=== PATIENT | female | born 1985 | race Caucasian/White ===

== ENCOUNTER 2025-07-19 22:41 | Outpatient (CLI) | payer OTHER, SELFPAY ==
[2025-07-19] VITALS (13 sets, daily range): BP systolic 121; BP diastolic 58; PULSE 75–89; O2SAT 94–98
[2025-07-20] VITALS (11 sets, daily range): PULSE 70–92; O2SAT 93–98
--- NOTE | 2025-07-20 00:15 | CRLHL7_ITS ---
For Patients: As a result of the Century Cures Act, medical imaging exams and procedure reports are released immediately into your electronic medical record. You may view this report before your referring provider. If you have questions, please contact your health care provider. INDICATION: Possible abruption, bleeding after intercourse. COMPARISON: None available. TECHNIQUE: Ultrasound OB pelvis transabdominal. Real time andres scale imaging of the fetus was performed without non-stress testing. FINDINGS: Sonographic imaging demonstrates a single living intrauterine gestation. The fetus has a regular cardiac rate of 142 beats per minute. The fetus has a cephalic orientation. The placenta lies posterior/left wall without evidence of placenta previa or abruption on the provided views. The cervix measures 4.2 cm in length and appears closed via transabdominal imaging. Single deepest pocket measures 9.8 cm. Amniotic fluid index measures 22.1 cm. breathing movements: 2/2 Gross body movements: 2/2 tone: 2/2 Amniotic fluid volume: 2/2 Total: 88 IMPRESSION: 1. Normal biophysical profile score 8 out of 8. 2. Posterior placenta without evidence of previa or abruption. The cervix appears closed. 3. ROMARIO is approaching upper limits of normal with deepest pocket measuring greater than 8 cm. Dictated by Sade Sullivan MD @ 07/20/2025 1:50:19 AM (Electronically Signed)
[2025-07-20 01:31] LABS: Trichomonas No Trichomonas Seen (None Seen)
--- NOTE | 2025-07-20 02:09 | PC.OBNST ---
NST Note NST Note Start: 07/19/25 22:43 Freq: ONCE Status: Active Protocol: Document 07/20/25 02:06 FELIXKELLYLANI (Rec: 07/20/25 02:09 TEE Goldman) NST Note 2 Para (# of births) 0 EDC 09/02/25 Gestational Age In 33 Weeks & 5 Days Weeks & Days High Risk Factors High Blood Pressure - Preexisting,Diabetes - Preexisting Type II Insulin,Advanced Maternal Age Patient Presented Vaginal bleeding with Complaint(s) of Other Complaints Pt reported bright red bleeding during intercourse. BPP 8/8, wetprep negative. Rhogam given, Kleihauer Betke sent out. Per Dr. Rudolph, if BPP 8/8 no need for further FHR monitoring. Reactive Yes Appropriate for Yes Gestational Age RN Glen Caballero RN Date 07/19/25 Reactive Yes Appropriate for Yes Gestational Age RN Dr. Ronni ZAVALA Date 07/19/25 OB NST charge Yes Complete NST Note Yes via Write Note The provider's electronic signature indicates the NST is reactive/appropriate for gestational age. *Note to provider: If an addendum is required, open the patient's chart and click on the note under the Nurse/Allied Health tab.
== END 2025-07-20 03:33 | disposition home or self-care (01) ==
LOC: OB OUT 22:41 → OB 22:42
PROVIDERS: PCP Family Medicine; Visit Provider Family Medicine
DX: O46.93 Antepartum hemorrhage, unspecified, third trimester (principal); O09.523 Supervision of elderly multigravida, third trimester; Z3A.33 33 weeks gestation of pregnancy
CPT/HCPCS: 36415; 59025; 76819; 85460; 85461; 87210; G0463; J2791

== ENCOUNTER 2025-07-21 09:14 | Outpatient (CLI) | payer OTHER, SELFPAY ==
[2025-07-21] VITALS (9 sets, daily range): BP systolic 132; BP diastolic 72; PULSE 76–88; O2SAT 97–98
[2025-07-21 10:19] LABS: Appearance Urine Clear (Clear)
--- NOTE | 2025-07-21 10:47 | PC.OBNST ---
NST Note NST Note Start: 07/21/25 10:12 Freq: ONCE Status: Active Protocol: Document 07/21/25 10:12 [facility] (Rec: 07/21/25 10:47 [facility] No Response) NST Note 2 Para (# of births) 0 EDC 09/02/25 Gestational Age In 33 Weeks & 6 Days Weeks & Days High Risk Factors High Blood Pressure - Preexisting,Diabetes - Preexisting Type II Diet Controlled,Advanced Maternal Age Patient Presented Contractions/cramping with Complaint(s) of Reactive Yes Appropriate for Yes Gestational Age RN Case RN Date 07/21/25 Reactive Yes Appropriate for Yes Gestational Age RN Radha RN Date 07/21/25 OB NST charge Yes Complete NST Note Yes via Write Note The provider's electronic signature indicates the NST is reactive/appropriate for gestational age. *Note to provider: If an addendum is required, open the patient's chart and click on the note under the Nurse/Allied Health tab.
== END 2025-07-21 10:50 | disposition home or self-care (01) ==
LOC: OB OUT 09:14 → OB 09:15
PROVIDERS: PCP Family Medicine; Visit Provider Family Medicine
DX: O24.419 Gestational diabetes mellitus in pregnancy, unspecified control (principal); O09.523 Supervision of elderly multigravida, third trimester; O26.893 Other specified pregnancy related conditions, third trimester; R03.0 Elevated blood-pressure reading, without diagnosis of hypertension; Z3A.33 33 weeks gestation of pregnancy
CPT/HCPCS: 59025; 81003; G0463

== ENCOUNTER 2025-08-04 16:35 | Outpatient (CLI) | payer OTHER, SELFPAY ==
[2025-08-04] VITALS (8 sets, daily range): BP systolic 133–138; BP diastolic 60–63; PULSE 81–166; RESP 20–22; TEMP 36.8–37.1; O2SAT 79–98
--- NOTE | 2025-08-04 16:57 | CRLHL7_ITS ---
For Patients: As a result of the Cures Act, medical imaging exams and procedure reports are released immediately into your electronic medical record. You may view this report before your referring provider. If you have questions, please contact your health care provider. INDICATION: Non-reassuring NST. COMPARISON: OB ultrasound 07/20/2025. TECHNIQUE: Ultrasound OB pelvis transabdominal. Real time grayscale imaging of the fetus was performed without non-stress testing. FINDINGS: Sonographic imaging demonstrates a single living intrauterine gestation. The fetus has a regular cardiac rate of 130 beats per minute. The fetus has a cephalic orientation. The placenta lies anteriorly. Single deepest pocket measures 10.8 cm. Amniotic fluid index measures 23.5 cm. breathing movements: 0/2 Gross body movements: 2/2 tone: 2/2 Amniotic fluid volume: 2/2 Total: 6/8 IMPRESSION: 1. Biophysical profile score 6 out of 8. breathing was visualized but not for a continuous 30 seconds or more. 2. Borderline polyhydramnios with ROMARIO measuring 23.5 cm and deepest pocket greater than 8 cm. Dictated by Sade Sullivan MD @ 08/04/2025 7:50:02 PM (Electronically Signed)
[2025-08-04] MEDS: LACTATED RINGERS 1000 ML 1,000 ML IV (17:15)
--- NOTE | 2025-08-04 20:21 | PC.OBNST ---
NST Note NST Note Start: 08/04/25 16:57 Freq: ONCE Status: Active Protocol: Document 08/04/25 16:57 [facility] (Rec: 08/04/25 20:21 [facility] [id number]) NST Note 2 Para (# of births) 0 EDC 09/02/25 Gestational Age In 35 Weeks & 6 Days Weeks & Days High Risk Factors Diabetes - Preexisting Type II Insulin,Advanced Maternal Age Patient Presented Other with Complaint(s) of Other Complaints unreactive NST at [facility] [place] [facility] appt. Would like to have continued monitoring and a BPP to ensure the well being of baby. Reactive Yes Appropriate for Yes Gestational Age SAMIR Goldsmith MD Date 08/04/25 Reactive Yes Appropriate for Yes Gestational Age SAMIR Ramos RN Date 08/04/25 OB NST charge Yes Complete NST Note Yes via Write Note The provider's electronic signature indicates the NST is reactive/appropriate for gestational age. *Note to provider: If an addendum is required, open the patient's chart and click on the note under the Nurse/Allied Health tab.
== END 2025-08-04 20:10 | disposition home or self-care (01) ==
LOC: OB OUT 16:36 → OB 16:44
PROVIDERS: PCP Family Medicine; Visit Provider Family Medicine
DX: O24.113 Pre-existing type 2 diabetes mellitus, in pregnancy, third trimester (principal); O09.523 Supervision of elderly multigravida, third trimester; Z3A.35 35 weeks gestation of pregnancy
CPT/HCPCS: 59025; 76819; G0463; J7120

== ENCOUNTER 2025-08-14 08:35 | Outpatient (CLI) | payer OTHER, SELFPAY ==
[2025-08-15 13:34] LABS: Strep B DNA Probe POSITIVE (Negative)
[2025-08-15 13:41] LABS: Strep B Susceptibility Needed? No
== END 2025-08-14 08:36 | disposition home or self-care (01) ==
PROVIDERS: PCP Family Medicine; Visit Provider Family Medicine
DX: O09.523 Supervision of elderly multigravida, third trimester (principal); Z3A.37 37 weeks gestation of pregnancy
CPT/HCPCS: 87081; 87653

== ENCOUNTER 2025-08-18 16:19 | Inpatient (IN) | payer OTHER, SELFPAY ==
[2025-08-18 17:00] VITALS: BP 132/65; PULSE 82
--- NOTE | 2025-08-18 19:10 | P.OBHP_ITS ---
OB - H&P: HPI Labor/Induction History of Present Illness Time Seen by Provider: 19:10 Date Seen: 08/18/25 Chief Complaint: The patient is a 40 year old 2 para 0 at 37.6 weeks gestation by LMP, who presents for induction of labor for obesity, chronic hypertension, type 2 diabetes on insulin. Chief complaint: maternity : 2 Para: 0 Narrative: Eveline Jiang is a 40 year old female Labs Blood type: A (-) negative Rubella: nonimmune RPR/VDLR: nonreactive GBS status: positive HBsAG: negative Review of Systems Status of ROS: Reports: 10 or more systems reviewed and unremarkable except as noted in History and below Meds Home Medications and Allergies Home Medications ?Medication ?Instructions ?Recorded ?Confirmed ?Type aspirin 81 mg tablet,delayed 81 mg PO DAILY 07/19/25 0 08/18/25 History release hydroxyzine pamoate 25 mg capsule 25 mg PO Q8H PRN 08/18/25 History insulin glargine 100 unit/mL (3 80 unit subcut HS 07/0208/18/25 History mL) subcutaneous pen (Lantus Solostar U-100 Insulin) insulin lispro 100 unit/mL 1 sliding scale dose subcut 07/19/25 08/18/25 History subcutaneous pen TIDWMEAL labetalol 100 mg tablet 100 mg PO BID 07/19/2508/18 History ondansetron 4 mg disintegrating 4 mg PO Q8H PRN nausea /vomiting 07/19/25 08/18/25 History tablet vitamins with calcium 1 tab PO DAILY 07/19/25 08/18/25 History no.72-iron 27 mg-folic acid 1 mg tablet (WesTab Plus) sertraline 100 mg tablet 150 mg PO DAILY 07/19/25 History Allergies Allergy/AdvReac Type Severity Reaction Status Date / Time cefdinir Allergy Intermediate Rash Verified 08/18/25 16:52 metformin AdvReac Severe Gastrointestinal Verified 08/18/25 16:52 Upset tramadol AdvReac Dizziness Verified 08/18/25 16:52 OB - H&P: Exam Physical Exam: Vital signs: Pulse BP 82 132/65 08/18/25 17:00 08/18/25 17:00 Constitutional: Constitutional: no acute distress Routine HEENT Exam: Head: Present atraumatic and normal inspection Routine Neck Exam: Neck: Present full ROM Routine Respiratory Exam: Respiratory: Present CTA bilaterally Routine Cardiovascular Exam: Cardiovascular: RRR, S1 and S2 Routine Abdominal Exam: Abdominal: Present normal bowel sounds Comments: Gravid, nontender Routine Exam: Perineum Description: Normal Detailed Labor and Delivery Exam: Patient Gravid: yes Dilation (cm): 1 Effacement (%): 20 Cervix position: posterior Consistency: medium Cervical ripeness score: 1 Tachysystole: No Contraction intensity: Mild Comments: sporadic contractions Fetus (Single): Station: -3 Amniotic Membrane Status: intact Heart Rate Baseline: 130 Monitor Accelerations: Present Monitor Decelerations: None Adjunct Instructor Of Women'S Studies Variability: Moderate (6-25) Routine Extremities Exam: Extremities: Present full ROM; Absent calf tenderness Routine Back/Spine/Pelvis Exam: Back/Spine: full ROM Routine Skin Exam: Present intact Routine Neurological Exam: Present alert and oriented X3 Routine Psychiatric Exam: Present normal affect and normal thought process OB - Problem Based A/P Additional Plan (1) Advanced maternal age (AMA) in : Problem details: Patient is 40 years old. Status: Acute (2) Positive GBS test: Problem details: Group B strep test positive Status: Acute Plan: - plan on starting Abx at 5am. (3) Abnormal test: Problem details: Jess high risk due to DNA fraction beling low-- thought due to obesity. Triploidy trisomy 18, trisomy 13 high risk. No stigmata of aneuploidy on level 2 ultrasound. Declined amniocentesis. Status: Acute (4) Rh negative status during : Problem details: received rhogam at 28 weeks. Also received on 07/20 during bleeding episode. Status: Acute (5) Chronic hypertension affecting : Problem details: has been well controlled with 100 mg labetalol BID Status: Acute (6) Type 2 diabetes mellitus affecting , antepartum: Problem details: Has been well controlled. Is on lantus 80 units at bedtime, Humalog 15 units per 40 grams of carbohydrates. Status: Acute Plan: - 50% lantus tonight (40 units) - continue meal time insulin as above - Has CGM on (7) Obesity affecting in third trimester: Problem details: Pre BMI 49. Status: Acute (8) Polyhydramnios affecting : Problem details: Intermittent polyhydramnios. SDP yesterday was 7.4 cm Status: Acute (9) macrosomia: Problem details: Most recent growth scan showed EFW 3286 g, >98% (growth scan was 07/27) Status: Acute (10) Anxiety: Problem details: on sertraline and hydroxyzine prn Status: Acute Plan: - continue Sertraline. Hydroxyzine prn Plan - cook catheter placed with 60 and 60 cc in vaginal and uterine balloons. Plan on low dose pitocin at 11pm. - morphine and vistaril prn - Given complex patient, Dr. Limon to consult tomorrow - anesthesia consulted outpatient - labs upon IV placement Delivery/Labor/Induction Plan Plan: induction Induction method: Intracervical balloon catheter
[2025-08-18 21:03] LABS: Hematocrit* 30.7 % (33.0-51.0); Hemoglobin* 10.8 gm/dL (12.0-16.0); Immature Granulocytes Abs Auto 0.03 K/uL (0.00-0.30); Immature Granulocytes Pct Auto 0.3 %; Mean Corpuscular HGB Conc 35 gm/dL (32-36); Mean Corpuscular Hemoglobin 29 pg (26-34); Mean Corpuscular Volume 83 fL (80-100); RDW Coefficient of Variation % 12.5 % (11.5-15.5); Red Blood Count* 3.68 m/uL (4.00-5.20); White Blood Count* 10.08 K/uL (4.50-11.00)
[2025-08-18 21:04] LABS: Lymphocytes Absolute Auto 1.90 K/uL (0.90-2.90)
[2025-08-18 21:05] LABS: Slide Review Reflex No
[2025-08-18] MEDS: LABETALOL HCL 100 MG TABLET PO (21:06)
[2025-08-18 21:10] VITALS: BP 145/75; PULSE 79
[2025-08-18] MEDS: ACETAMINOPHEN 500 MG TABLET 1000 MG PO (21:48)
[2025-08-19] VITALS (102 sets, daily range): BP systolic 71–177; BP diastolic 34–99; PULSE 61–160; RESP 16–17; TEMP 36.4–36.5; O2SAT 93–100; BMI 58.1
[2025-08-19] MEDS: ONDANSETRON 2 MG/ML inj 4 MG IV (00:15)
[2025-08-19] MEDS: LACTATED RINGERS 1000 ML 1,000 ML 75 ML IV ×3 (02:12→18:39)
[2025-08-19] MEDS: OXYTOCIN 30 unit/500 ML in NS 30 UNIT/500 ML BAG IVPB (02:12)
--- NOTE | 2025-08-19 07:44 | P.OBPN_ITS ---
Subjective Time Seen by Provider: 07:44 Date Seen: 08/19/25 Narrative: Patient had a lot of pain with cook catheter, felt better after morphine and vistaril. Patient feels well this morning. Did get some rest overnight. Objective Exam: Resting comfortably in recliner. No acute distress. Vital Signs: Last Vital Signs Pulse 70 08/19/25 05:09 BP 123/59 L 08/19/25 05:09 Contractions Monitor mode: External Contraction Frequency: 4-5 min Contraction pattern: Irregular Contraction intensity: Mild Pitocin Rate (mU/min): 5 Assessment Assessment: active labor Station: -3 Tracing Comments: monitoring is very disconnected at this point. Generally in 140s Labor Progress: Cook catheter out, titrating pitocin. Plan Plan: - continue to titrate pitocin - close monitoring of bp and blood glucose - PLATFORM ENGINEER consult today - Plan on AROM at noon (discussed internal monitors will likely be needed) - continue to work on monitoring baby. - Anticipate , though high risk for failed induction given risk factors.
[2025-08-19] MEDS: SERTRALINE 50 MG TABLET 150 MG PO (08:14)
[2025-08-19] MEDS: LABETALOL HCL 100 MG TABLET PO (08:14)
[2025-08-19] MEDS: CEFAZOLIN 2 GM in 0.9 % SODIUM CHLORIDE Mini-bag 100 ML IVPB (08:48)
--- NOTE | 2025-08-19 09:43 | PM.OBCN1 ---
OB - CN: HPI Date of Consult Time Seen by Provider: 09:15 Date Seen: 08/19/25 Patient: Terese Patient Consult date: 08/19/25 Requesting Physician: Deanna Wright MD Primary Care Provider: Deanna Wright MD Consult Narrative Reason for consult: other (BMI, at high risk for section.) Narrative: The patient is a 40 year old G 2 P 0 at 38 0/7 weeks gestation that was admitted to the Center on 08/18/25 for IOL due to CHTN, DM type 2 on insulin, suspected macrosomia, mild polyhydramnios. Patient has been comanaged by Dr. Wright FM and MPP. Recommendation was given for delivery at 38 weeks. I was consulted this am to review section risk with patient. Printed records reviewed this am by me prior to meeting patient. IOL ongoing, started last night with placement of cook catheter, IV Oxytocin overnight. Patient had a positive type and screen, Dr. Wright did notify me this morning that patient received Rhogam about 4 weeks ago due to an episode of vaginal bleeding after intercourse. Patient was evaluated in out unit and findings were reassuring and not consistent with abruption, PPROM or labor. History of Present Dating criteria: based on LMP care: good care Ultrasounds: normal 1st trimester US and normal mid trimester US complications: chronic hypertension and other History History 2 Elective abortions Para 0 Spontaneous abortions Hx # Term Pregnancies Ectopic pregnancies Hx # Pregnancies Multiple births Number of Living Children 0 Labs Blood type: A (-) negative Rubella: nonimmune RPR/VDLR: nonreactive GBS status: positive HBsAG: negative OB Labs: Lab Assessment Start: 08/18/25 16:48 Freq: ONCE Status: Complete Protocol: PC.OBGBS Activity Type Activity Date Activity User E-sign Co-sign Detail Recorded Client Recorded Date Recorded By Document 08/19/25 08:32 [facility] [id number] 08/19/25 08:32 [facility] 08/19/25 08:32 Lab Assessment GBS Status positive Is Patient Allergic to Penicillin? No Treatment Required [facility] Medical History (Updated 08/18/25 @ 19:35 by Deanna Wright MD) Asthma ?J45.909 - Unspecified asthma, uncomplicated (ICD-10) Anxiety ?F41.9 - Anxiety disorder, unspecified (ICD-10) Chronic hypertension affecting ?O10.919 - Unspecified pre-existing hypertension complicating , unspecified trimester (ICD-10) Type 2 diabetes mellitus affecting , antepartum ?O24.119 - Pre-existing type 2 diabetes mellitus, in , unspecified trimester (ICD-10) Surgical History S/P tonsillectomy and adenoidectomy ?Z90.89 - Acquired absence of other organs (ICD-10) History of esophagogastroduodenoscopy (EGD) ?Z98.890 - Other specified postprocedural states (ICD-10) Social History What is your current living situation?: I presently have a place to live Problems where you live: no known problems In the past 12 months, utilities in danger of being shut off: no In past 12 months, lack of transportation kept you from medical appts, meetings, work, or getting things needed for daily living: no In the past 12 mos, have been you worried that your food would run out before you had money to buy more?: never true In the past 12 mos, the food you bought just didn't last and you didn't have money to buy more?: never true Smoking Status: Never smoker How often does anyone, including family, friends and others, physically hurt you: never How often does anyone, including family, friends and others, insult or talk down to you: never How often does anyone, including family, friends and others, threaten you with harm: never How often does anyone, including family, friends and others, scream or curse at you: never Meds Home Medications and Allergies Home Medications ?Medication ?Instructions ?Recorded ?Confirmed ?Type aspirin 81 mg tablet,delayed 81 mg PO DAILY 07/19/25 08/18/25 History release hydroxyzine pamoate 25 mg capsule 25 mg PO Q8H PRN 07/19/25 08/18/25 History insulin glargine 100 unit/mL (3 80 unit subcut HS 07/19/25 08/18/25 History mL) subcutaneous pen (Lantus Solostar U-100 Insulin) insulin lispro 100 unit/mL 1 sliding scale dose subcut 07/19/25 08/18/25 History subcutaneous pen TIDWMEAL labetalol 100 mg tablet 100 mg PO BID 07/19/25 08/18/25 History ondansetron 4 mg disintegrating 4 mg PO Q8H PRN nausea/vomiting 07/19/25 08/18/25 History tablet vitamins with calcium 1 tab PO DAILY 07/19/25 08/18/25 History no.72-iron 27 mg-folic acid 1 mg tablet (WesTab Plus) sertraline 100 mg tablet 150 mg PO DAILY 07/19/25 08/18/25 History Allergies Allergy/AdvReac Type Severity Reaction Status Date / Time cefdinir Allergy Intermediate Rash Verified 08/18/25 16:52 metformin AdvReac Severe Gastrointestinal Verified 08/18/25 16:52 Upset tramadol AdvReac Dizziness Verified 08/18/25 16:52 OB - H&P: Exam Physical Exam: Vital signs: Temp Pulse Resp BP 97.7 F 66 17 146/87 H 08/19/25 07:53 08/19/25 08:21 08/19/25 07:53 08/19/25 08:21 OB - Results Labs Labs: Short CBC 08/18/25 Range/Units 20:54 WBC 10.08 (4.50-11.00) K/uL Hgb 10.8 L (12.0-16.0) gm/dL Hct 30.7 L (33.0-51.0) % Plt Count 267 (140-440) K/uL OB - CN: A/P Assessment and Plan (1) Advanced maternal age (AMA) in : Problem details: Patient is 40 years old. Status: Acute (2) Positive GBS test: Problem details: Group B strep test positive Status: Acute (3) Abnormal test: Problem details: Jess high risk due to DNA fraction beling low-- thought due to obesity. Triploidy trisomy 18, trisomy 13 high risk. No stigmata of aneuploidy on level 2 ultrasound. Declined amniocentesis. Status: Acute (4) Rh negative status during : Problem details: received rhogam at 28 weeks. Also received on 07/20 during bleeding episode. Status: Acute (5) Chronic hypertension affecting : Problem details: has been well controlled with 100 mg labetalol BID Status: Acute (6) Type 2 diabetes mellitus affecting , antepartum: Problem details: Has been well controlled. Is on lantus 80 units at bedtime, Humalog 15 units per 40 grams of carbohydrates. Status: Acute (7) Obesity affecting in third trimester: Problem details: Pre BMI 49. Status: Acute Assessment and Plan: Met Eveline this morning, very pleasant. We reviewed reason for my consult today. Reviewed higher risk for section due to BMI, suspected macrosomia. Discussed that at this point we would not know until we try and that the goal is always to work for a vaginal delivery. I did review certain specific recommendations to include not waiting too long for re consult if labor progress seems to be protracted, mostly if station remains high. Reviewed recommendation against an assisted vaginal delivery due to high risk of shoulder dystocia. I asked patient if wanted to discuss specifics about delivery such as how procedure is performed details about discussion of risks, but patient does not want to jump into that quite yet if not needed. We did review how recovery looks different from a vaginal delivery, we also briefly reviewed family centered delivery and answered questions that patient had at this time. In the case of a delivery I will need assistance due to body habitus. FU as needed. (8) Polyhydramnios affecting : Problem details: Intermittent polyhydramnios. SDP yesterday was 7.4 cm Status: Acute (9) macrosomia: Problem details: Most recent growth scan showed EFW 3286 g, >98% (growth scan was 07/27) Status: Acute (10) Anxiety: Problem details: on sertraline and hydroxyzine prn Status: Acute
[2025-08-19] MEDS: LIDOCAINE 2% (PF) 5 ML VIAL EPIDURAL (12:59)
[2025-08-19] MEDS: ePHEDrine sulfate 5 MG/ML inj 10 MG IVP (13:08)
[2025-08-19] MEDS: PHENYLEPHRINE 100 MCG/ML SYRINGE IVP ×2 (13:14→13:18)
--- NOTE | 2025-08-19 13:18 | PM.OBPNL ---
Subjective Time Seen by Provider: 13:19 Date Seen: 08/19/25 Narrative: Requests epidural, feels well. Objective Exam: resting comfortably Vital Signs: Last Vital Signs Temp 97.7 F 08/19/25 07:53 Pulse 71 08/19/25 13:17 Resp 17 08/19/25 07:53 BP 82/45 L 08/19/25 13:17 Pulse Ox 99 08/19/25 13:14 Pelvic Exam Dilation (cm): 3 Effacement (%): 50 Station: -3 Contractions Monitor mode: Internal Contraction Frequency: 3 Contraction pattern: Regular Contraction intensity: Strong/Firm Pitocin Rate (mU/min): 19 Assessment Assessment: induction ongoing Station: -3 Amniotic Membrane Status: AROM (copious amount of clear fluid) Status: Category l Heart Rate Baseline: 125 Mcfp Variability: Moderate (6-25) Monitor Accelerations: Present Monitor Decelerations: None Labor Progress: AROM now with internals placed following epidural placement. Doing well. Plan Plan: - monitor BP closely, has been low following epidural. Meds dosed per protocol. - continue to monitor blood sugar closely - AROM now of clear fluid, titrate pitocin as needed to adequate MVUs - difficulty monitoring baby, scalp placed. - OB business continuity consultant updated
[2025-08-19] MEDS: ROPIVACAINE 0.2% 100 ml 100 ML 12 MG EPIDURAL (13:30)
--- NOTE | 2025-08-19 13:37 | PM.ANBPRC ---
[facility] Medical History (Updated 08/18/25 @ 19:35 by Deanna Wright MD) Asthma ?J45.909 - Unspecified asthma, uncomplicated (ICD-10) Anxiety ?F41.9 - Anxiety disorder, unspecified (ICD-10) Chronic hypertension affecting ?O10.919 - Unspecified pre-existing hypertension complicating , unspecified trimester (ICD-10) Type 2 diabetes mellitus affecting , antepartum ?O24.119 - Pre-existing type 2 diabetes mellitus, in , unspecified trimester (ICD-10) Surgical History S/P tonsillectomy and adenoidectomy ?Z90.89 - Acquired absence of other organs (ICD-10) History of esophagogastroduodenoscopy (EGD) ?Z98.890 - Other specified postprocedural states (ICD-10) Social History What is your current living situation?: I presently have a place to live Problems where you live: no known problems In the past 12 months, utilities in danger of being shut off: no In past 12 months, lack of transportation kept you from medical appts, meetings, work, or getting things needed for daily living: no In the past 12 mos, have been you worried that your food would run out before you had money to buy more?: never true In the past 12 mos, the food you bought just didn't last and you didn't have money to buy more?: never true Smoking Status: Never smoker How often does anyone, including family, friends and others, physically hurt you: never How often does anyone, including family, friends and others, insult or talk down to you: never How often does anyone, including family, friends and others, threaten you with harm: never How often does anyone, including family, friends and others, scream or curse at you: never Meds Home Medications and Allergies Home Medications ?Medication ?Instructions ?Recorded ?Confirmed ?Type aspirin 81 mg tablet,delayed 81 mg PO DAILY 07/19/25 08/18/25 History release hydroxyzine pamoate 25 mg capsule 25 mg PO Q8H PRN 07/19/25 08/18/25 History insulin glargine 100 unit/mL (3 80 unit subcut HS 07/19/25 08/18/25 History mL) subcutaneous pen (Lantus Solostar U-100 Insulin) insulin lispro 100 unit/mL 1 sliding scale dose subcut 07/19/25 08/18/25 History subcutaneous pen TIDWMEAL labetalol 100 mg tablet 100 mg PO BID 07/19/25 08/18/25 History ondansetron 4 mg disintegrating 4 mg PO Q8H PRN nausea/vomiting 07/19/25 08/18/25 History tablet vitamins with calcium 1 tab PO DAILY 07/19/25 08/18/25 History no.72-iron 27 mg-folic acid 1 mg tablet (WesTab Plus) sertraline 100 mg tablet 150 mg PO DAILY 07/19/25 08/18/25 History Allergies Allergy/AdvReac Type Severity Reaction Status Date / Time cefdinir Allergy Intermediate Rash Verified 08/18/25 16:52 metformin AdvReac Severe Gastrointestinal Verified 08/18/25 16:52 Upset tramadol AdvReac Dizziness Verified 08/18/25 16:52 Results Labs Labs: Laboratory Results - last 24 hr 08/18/25 20:54 WBC 10.08 RBC 3.68 L Hgb 10.8 L Hct 30.7 L MCV 83 MCH 29 MCHC 35 RDW Coeff of Adalgisa 12.5 Plt Count 267 Neut % (Auto) 69.1 Lymph % (Auto) 18.7 L [place] % (Auto) 9.4 Eos % (Auto) 2.2 Baso % (Auto) 0.3 Neut # (Auto) 6.97 Lymph # (Auto) 1.90 [place] # (Auto) 0.90 Eos # (Auto) 0.22 Baso # (Auto) 0.03 Abs Immat Gran (auto) 0.03 Imm/Tot Granulo (auto) 0.3 Blood Type A Negative Antibody Screen POSITIVE Antibody Identification Anti-D Crossmatch (AHG) See Detail Vital Signs Vital Signs: Last Vital Signs Temp 97.7 F 08/19/25 07:53 Pulse 68 08/19/25 13:36 Resp 17 08/19/25 07:53 BP 125/59 L 08/19/25 13:36 Pulse Ox 95 08/19/25 13:24 Weight: 139.43 kg Height: 154.94 cm Anesthesia Procedures Epidural Insertion Patient Location: OB Start Time: 12:00 Stop Time: 13:00 Start Date: 08/19/25 Stop Date: 08/19/25 Reason for Block: procedure for pain Patient Position: sitting Performed By: Iam Yo Preanesthetic Checklist: IV checked, risks and benefits discussed, timeout performed and anesthesia consent Prep: chlorhexidine gluconate Monitoring: blood pressure monitoring and continuous pulse oximetry Approach: midline Vertebral Space: lumbar (1-5) Epidural Technique: TRENT saline Needle Type: Tuohy needle Injection Technique: continuous catheter Needle gauge: 17 Needle Length (cm): 10 cm Needle Insertion Depth (cm): 9 Catheter Gauge: 19 Catheter Type: multi-orifice Catheter at skin depth (cm): 16 Test Dose Result: negative and lidocaine 1.5% with epinephrine 1 to 200,000
[2025-08-19] MEDS: CEFAZOLIN 1 GM in 0.9 % SODIUM CHLORIDE Mini-bag 100 ML IVPB ×2 (13:41→17:24)
[2025-08-19] MEDS: ACETAMINOPHEN 500 MG TABLET 1000 MG PO (20:00)
[2025-08-19] MEDS: AZITHROMYCIN 500 MG in 0.9 % SODIUM CHLORIDE 250 ml 250 ML 255 MG IVPB (20:51)
--- NOTE | 2025-08-19 20:52 | PM.OBPNL ---
Subjective Time Seen by Provider: 20:00 Date Seen: 08/19/25 Narrative: Patient is feeling well. She feel epidural has been going well. Objective Exam: resting comfortably in bed. Vital Signs: Last Vital Signs Temp 97.6 F 08/19/25 20:00 Pulse 78 08/19/25 20:49 Resp 17 08/19/25 17:33 BP 140/76 H 08/19/25 20:49 Pulse Ox 97 08/19/25 15:21 Pelvic Exam Dilation (cm): 4.5 Effacement (%): 50 Station: -3 Contractions Monitor mode: Internal Contraction Frequency: 3-4 Contraction pattern: Regular Contraction intensity: Strong/Firm Pitocin Rate (mU/min): 25 Assessment Assessment: induction ongoing Station: -3 Amniotic Membrane Status: AROM (copious amount of clear fluid) Status: Category l Heart Rate Baseline: 125 Retirement Variability: Moderate (6-25) Monitor Accelerations: Present Monitor Decelerations: None Labor Progress: Patient has progressed from 3-4.5 cm with adequate MVUs over 8 hours. However, station has not changed. head still quite high. Plan Plan: - discussed with Dr. Marek Humphreys, who assessed and feels that as station has not improved, should proceed with primary section. Patient is in agreement with plan. - I will attend for pediatric care of baby - will discontinue pitocin at this time. - heart tracing reassuring.
--- NOTE | 2025-08-19 23:18 | PM.OBPRCCS ---
OB Delivery Proc Additional Procedures Tubal Ligation at the time of : No Other: No Procedure Date of procedure: 08/19/25 Pre-op diagnosis: IUP at 38 0/7 weeks, Chronic hypertension, GDMA2, suspected macrosomia, arrest in dilation, failed IOL. Post-op diagnosis: same Procedure Done: only Will [facility] bill your pro fee for this procedure?: Yes Blood Loss Measurement Type: QBL (997) Bakri Used: No IV fluids (mL): 1,000 Urine Output (mL): 50 Urine Output Comment: Clear at end of surgery Surgeon: Wade Childers MD Chest Painting And Sealing Supervisor: Deja Bagley MD Anesthesia Type: Epidural Findings: FINDINGS: Live-born male , vertex LOP presentation, Apgars 8 and 9 at 1 and 5 minutes respectively. weight 3380g. Grossly normal bilateral fallopian tubes and ovaries. Procedure Name: Primary Low Transverse Section Procedure Description: PROCEDURE: After obtaining informed consent, the patient was taken to the operating room where epidural anesthesia was found to be adequate. A pannus retractor was placed. She was prepared and draped in the normal sterile fashion in the dorsal supine position with a leftward tilt. A Pfannenstiel skin incision was made with a scalpel about 2 cm above symphysis pubic bone, 14-16 cm in length. This incision was carried down to the underlying layer of fascia with the Bovie and scalpel. Multiple large bleeding superficial vessels encountered and grasped with Elisa, coagulated and cut. The fascia was incised in the midline and the incision extended laterally. The superior and inferior aspects of the fascial incision were grasped with Wilbert clamps, elevated and the underlying rectus muscles dissected off sharply and with electrocautery. The rectus muscles were then in the midline. The Hollis O retractor was then placed into the incision. The lower uterine segment was then incised in a transverse fashion with the scalpel. Upon entry into the uterus, clear amniotic fluid was noted. The uterine incision was extended cephalo caudally with blunt finger fractionation. The 's head was delivered atraumatically, 2 nuchal cords reduced easily and this allowed delivery of the rest of the infant's body. The cord was doubly clamped and cut, and the was handed off the field to warm for evaluation. The placenta was delivered spontaneously with umbilical cord traction and fundal massage. The uterus was cleared of all clots and debris. The uterine incision was reapproximated in a running locking fashion with a 0 Vicryl suture. A 2nd layer of the same suture was used to imbricate in horizontal fashion. At this time a small hematoma was noted in the lower uterine segment towards the left this did not look to be expanding and measured about 3-4cm in largest dimension. To better visualize it the uterus was exteriorized. Large and dilated left uterine vessels noted and bleeding noted from this site, decision was made to place an [place] stitch. Vicryl 0 utilized and a figure of 8 stitch was completed. Immediate hemostasis noted. Hematoma again inspected and no concern for expansion again noted. The gutters were inspected and cleared of blood clot. Sammy placed over hysterotomy to further secure hemostasis. All instruments and retractors were removed. Subfascial muscles thoroughly inspected and hemostasis secured. Fascia approximated with 0 PDS. The subcutaneous tissues were copiously irrigated, inspected and hemostasis secured. The subcutaneous fat was reapproximated with running sutures of 3-0 Vicryl in 4 layers. The skin was closed in a subcuticular fashion with 4-0 Monocryl. LiquiBand applied and silver dressing will remain in place for 7 days. The patient tolerated the procedure well. Sponge, lap, needle, and instrument counts were reported as correct x2. The patient was taken to the recovery room, awake, and in stable condition. She did receive 3 grams of IV Ancef and 500mg of Azithromycin preoperatively. 1g of TXA was also given at start of surgery due to concerns for multiple small bleeding vessels upon initiation of surgery. Complications: Patient did have an anxiety attack during surgery and was moving quite a lot, patient denied pain, she was concerned that she was unable to feel her legs. Anesthesia provided IV medication and she was eventually able to rest and we were able to complete surgery w/o the need for intubation. Pathology: specimen obtained, sent to pathology Surgery Debrief Performed: Yes Condition: stable Disposition: floor
[2025-08-20] VITALS (34 sets, daily range): BP systolic 102–129; BP diastolic 66–84; PULSE 64–90; RESP 16–20; TEMP 36.4–36.8; O2SAT 96–100
--- NOTE | 2025-08-20 00:01 | P.ANES_ITS ---
Anesthesia Charges Start Date/Time Anesthesia Start Date: 08/20/25 Anesthesia Start Time: 21:38 Stop Date/Time Anesthesia Stop Date: 08/20/25 Anesthesia Stop Time: 23:53 Summary Emergency: SPECIAL EVENTS PLANNER Coding CPT Codes CPT Codes: ANES/ANALG CS DELIVER ADD-ON - 95987 ([id number]) P3 - PATIENT W/SEVERE SYS DISEASE, QZ - SPECIAL EVENTS PLANNER SVC W/O SHIPPING AND RECEIVING COORDINATOR BY Additional Codes: Summary - Emergency: SPECIAL EVENTS PLANNER ([id number])
--- NOTE | 2025-08-20 00:01 | W.ANESCHARGE ---
Anesthesia Charges Start Date/Time Anesthesia Start Date: 08/20/25 Anesthesia Start Time: 21:38 Stop Date/Time Anesthesia Stop Date: 08/20/25 Anesthesia Stop Time: 23:53 Summary Emergency: PHARMACEUTICAL LABORATORY TECHNICIAN Coding CPT Codes CPT Codes: ANES/ANALG CS DELIVER ADD-ON - 27422 ([id number]) P3 - PATIENT W/SEVERE SYS DISEASE, QZ - PHARMACEUTICAL LABORATORY TECHNICIAN SVC W/O FINANCIAL SERVICES COUNSELOR BY Additional Codes: Summary - Emergency: PHARMACEUTICAL LABORATORY TECHNICIAN ([id number])
--- NOTE | 2025-08-20 00:04 | W.PM.NB ---
Nerve Block Nerve Block Time Seen by Provider: 23:41 Date Seen: 08/20/25 Type of block requested by surgeon for post-operative analgesia: TAP Side: bilateral Time out performed: Yes Verification of patient name: Yes Verification of date of : Yes Name of person performing procedure: Cele Yo Continuous monitoring Was continuous monitoring of O2 sat, B/P, surveillance monitor, recorded every 15 minutes?: Yes Procedure Checklist: sterile prep, needles and gloves Ultrasound guided. Images saved: Yes Medications given in 5ml increments after negative aspiration: Marcaine %: 0.25 mL: 40 Needle gauge: 20 and Exparel mL: 10 Needle gauge: 20 Patient tolerated procedure well: Yes Block Charges Block Charge (with Pro Fee): TAP Bilateral Use of Ultrasound Machine for Block: Yes- US Guidance/pain block
[2025-08-20 06:21] LABS: Hemoglobin* 10.0 gm/dL (12.0-16.0)
[2025-08-20] MEDS: LABETALOL HCL 100 MG TABLET PO ×2 (10:01→21:08)
[2025-08-20] MEDS: SERTRALINE 50 MG TABLET 150 MG PO (10:01)
[2025-08-20] MEDS: DOCUSATE SODIUM 100 MG CAPSULE PO (10:01)
[2025-08-20] MEDS: ENOXAPARIN 40 MG/0.4 ML INJ SUBCUT ×2 (11:31→23:17)
[2025-08-20] MEDS: ACETAMINOPHEN 500 MG TABLET 1000 MG PO (20:29)
[2025-08-21 04:02] VITALS: BP 132/81; PULSE 83; RESP 16; TEMP 36.4; O2SAT 98
[2025-08-21] MEDS: ACETAMINOPHEN 500 MG TABLET 1000 MG PO ×2 (07:34→13:36)
[2025-08-21 07:47] VITALS: BP 128/83; PULSE 91; RESP 16; TEMP 36.7; O2SAT 98
--- NOTE | 2025-08-21 08:20 | PM.OBDSVD1 ---
DS: Providers Provider Time Seen by Provider: 08: Date Seen: 08/21/25 Date of admission: 08/18/25 16:19 Primary care physician: Deanna Wright MD Admitting Clinician: Deanna Wright MD Consults: 08/18/25 19:19 Consult to Physician [CONS] Routine Comment: Consulting Provider: Nori Childers Has provider been notified: Yes Attending Physician on discharge: Deanna Wright MD Date of Discharge: 08/21/25 DS: Diagnosis Discharge Diagnosis (1) S/P primary low transverse : Status: Acute (2) Anxiety: Status: Acute Problem details: on sertraline and hydroxyzine prn (3) Rh negative status during : Status: Acute Problem details: received rhogam at 28 weeks. Also received on 07/20 during bleeding episode. (4) Chronic hypertension affecting : Status: Acute Problem details: has been well controlled with 100 mg labetalol BID (5) Type 2 diabetes mellitus affecting , antepartum: Status: Acute Problem details: Endocrinology recommendations: Lantus 25 units daily, stop Humalog. Maintain pre-prandial glucose between 80-130, post-prandial between 80-180. Lantus decreased to 12 units daily at discharge due to hypoglycemia on 25 units Exam Narrative: Exam Narrative: Physical exam: General: No acute distress Psych: Alert and oriented x4, full affect HEENT: Normocephalic, atraumatic Heart: Regular rate and rhythm, no murmur rub or gallop Lungs: Clear to auscultation bilaterally Abdomen: Normoactive bowel sounds, soft, no tenderness, rebound, or guarding Incision(s): Silver dress seal was already disrupted. Dressing removed. Appropriately tender to palpation. Clean, dry, and intact. No erythema, induration, or abnormal discharge/breakdown Skin: No lesions or rashes Lower extremities: 1+ bilateral lower extremity edema Pelvic exam: Scant bleeding on pad Const: Vital Signs, click to edit/add: Vital Signs - 24 hr 08/20/25 08:54 08/20/25 09:54 08/20/25 10:54 Temperature Pulse Rate [Pulse Oximeter] Respiratory Rate 18 16 16 Blood Pressure [Ri ght Arm] Pulse Oximetry Oxygen Delivery Ri thod 08/20/25 11:54 08/20/25 15:47 08/20/25 16:00 Temperature 98.3 F 98.0 F Pulse Rate [Pulse Oximeter] 75 87 Respiratory Rate 16 18 18 Blood Pressure [Ri ght Arm] 106/70 102/66 Pulse Oximetry 98 97 Oxygen Delivery Me thod Room Air Room Air 08/20/25 16:54 08/20/25 19:45 08/20/25 19:45 Temperature 98.2 F Pulse Rate [Pulse Oximeter] 83 Respiratory Rate 20 16 16 Blood Pressure [Ri ght Arm] 122/75 Pulse Oximetry 97 Oxygen Delivery Me thod Room Air 08/20/25 21:05 08/20/25 23:37 08/21/25 04:02 Temperature 98.0 F 97.5 F L Pulse Rate [Pulse Oximeter] 82 90 83 Respiratory Rate 16 16 Blood Pressure [Ri ght Arm] 125/76 120/78 132/81 Pulse Oximetry 96 98 Oxygen Delivery Me thod Room Air Room Air 08/21/25 07:47 Temperature 98.1 F Pulse Rate [Pulse Oximeter] 91 Respiratory Rate 16 Blood Pressure [Ri ght Arm] 128/83 Pulse Oximetry 98 Oxygen Delivery Me thod Room Air OB - DS: Summary Hospital Course Hospital Course: The patient is a 40 year old G2, now P1 who was admitted at 37.6 weeks gestation that was admitted to the Center on 08/18/25 for medical induction of labor. She had a failed induction of labor that resulted in primary delivery. She delivered a viable male . She is breast and bottle feeding. the patient has done very well! Overnight patient had no complaints. Her pain is well controlled on oral pain medications. She is tolerating a regular diet. She has passed flatus and had 2 BMs. She is ambulating without difficulty. Lochia is scant. She is urinating without ellison. Patient denies chest pain, SOB, n/v, headache, RUQ pain, vision changes, dizziness. Denies any persistent headache, vision changes, SOB, right upper quadrant/epigastric pain, or rapidly expanding edema. BP overnight wnl. Will keep on same antihypertensive medication. Glargine decreased to 12 units due to hypoglycemia yesterday. Patient will continue monitoring her blood glucose and will follow-up with her small craft operator. She received prophylactic anticoagulation while inpatient. Hgb stable at 10.0 gm/dL after delivery. Peripartum Data Procedures: Procedures Operation Date: 08/19/25 21:30 Actual Procedure Side Surgeon p Primary low transverse Section Nori Childers MD Gender: Male Time Spent with Patient Time attestation: Total time spent providing and/or coordinating discharge services: Discharge Plan Discharge Disposition: Home, Self-Care Date of Admission: 08/18/25 16:19 Attending Provider on Discharge: Deja Bagley Consulting Providers: Nori Cihlders Primary Care Provider: Deanna Wright Condition: Stable Anticipated Discharge Date/Time: 08/21/25 14:00 Discharge Medications: Continued hydroxyzine pamoate 25 mg capsule 25 mg PO Q8H PRN sertraline 100 mg tablet 150 mg PO DAILY labetalol 100 mg tablet 100 mg PO BID ondansetron 4 mg tablet,disintegrating 4 mg PO Q8H PRN (Reason: nausea/vomiting) WesTab Plus 27 mg iron- 1 mg tablet 1 tab PO DAILY Discontinued aspirin 81 mg tablet,delayed release (DR/EC) 81 mg PO DAILY insulin glargine [Lantus Solostar U-100 Insulin] 100 unit/mL (3 mL) insulin pen 80 unit SUBCUT HS Patient Comments: INJECT 72 UNITS UNDER THE SKIN EVERY EVENING, AND INCREASE UP TO 150 UNITS IN DIRECTED Rx Instructions: currently taking 82 units insulin lispro 100 unit/mL insulin pen 1 sliding scale dose SUBCUT TIDWMEAL Patient Comments: INJECT 6 to 20 UNITS SUBCUTANEOUSLY PER MEAL (1 UNIT/15 GRAMS) - MAX DOSE 75 UNITS DAILY No Action insulin glargine [Lantus Solostar U-100 Insulin] 100 unit/mL (3 mL) insulin pen 12 unit subcut DAILY Qty: 15 0RF acetaminophen 500 mg tablet 1,000 mg PO Q6H PRN (Reason: Pain) 30 Days Qty: 60 0RF docusate sodium 100 mg capsule 100 mg PO DAILY 30 Days Qty: 30 0RF ibuprofen 600 mg tablet 600 mg PO Q6H PRN (Reason: Pain) 30 Days Qty: 60 0RF Lanolin (HPA) 100 % cream 1 applic topical Q1H PRN (Reason: skin irritation) Qty: 7 0RF simethicone 80 mg tablet,chewable 80 - 160 mg PO Q4H PRN (Reason: Gas) 14 Days Qty: 30 0RF oxycodone 5 mg tablet 5 mg PO Q6H PRN (Reason: pain) 14 Days Qty: 10 0RF Discharge Orders: Discharge Order (Routine); Ordered 08/21/25 Ordered By: Deja Bagley Patient Education: OB /Breast Feeding Additional Instructions: Follow up with [facility] for blood pressure check and incision check in 1 [address] Follow up [address] Dr. Wright for two week and six week Activity Level: Activity as Tolerated Discharge Diet: Regular Follow Up Appointments: Deanna Wright MD [Primary Care Provider, Family Practice] Forms: Patient Belongings, MyHealth Info Instructions Discharge Comments: Follow up with C for blood pressure check and incision check in [address] up [address]. Wright for two week and six week
[2025-08-21] MEDS: LABETALOL HCL 100 MG TABLET PO (08:34)
[2025-08-21] MEDS: SERTRALINE 50 MG TABLET 150 MG PO (08:35)
[2025-08-21] MEDS: DOCUSATE SODIUM 100 MG CAPSULE PO ×2 (08:37)
[2025-08-21 11:15] VITALS: BP 130/81; PULSE 86; RESP 16; TEMP 36.7; O2SAT 97
[2025-08-21] MEDS: IBUPROFEN 600 MG TABLET PO (11:25)
[2025-08-21] MEDS: ENOXAPARIN 40 MG/0.4 ML INJ SUBCUT (11:25)
== END 2025-08-21 15:50 | disposition home or self-care (01) | DRG 787 ==
PROVIDERS: Obstetrics & Gynecology; Admitting Provider Family Medicine; PCP Family Medicine; Visit Provider Family Medicine
PROC: 10D00Z1 Extraction of Products of Conception, Low, Open Approach (ICD-10-PCS; CPT 59514; principal; 2025-08-19 21:30)
DX: O24.92 Unspecified diabetes mellitus in childbirth (principal); O10.92 Unspecified pre-existing hypertension complicating childbirth; O36.63X0 Maternal care for excessive fetal growth, third trimester, not applicable or unspecified; O62.0 Primary inadequate contractions; O61.0 Failed medical induction of labor; O61.1 Failed instrumental induction of labor; G89.18 Other acute postprocedural pain; F41.0 Panic disorder [episodic paroxysmal anxiety]; O99.824 Streptococcus B carrier state complicating childbirth; Z79.4 Long term (current) use of insulin; O26.893 Other specified pregnancy related conditions, third trimester; Z67.11 Type A blood, Rh negative; O40.3XX0 Polyhydramnios, third trimester, not applicable or unspecified; O99.214 Obesity complicating childbirth; E66.9 Obesity, unspecified; O99.344 Other mental disorders complicating childbirth; F41.9 Anxiety disorder, unspecified; Z37.0 Single live birth; Z3A.37 37 weeks gestation of pregnancy
CPT/HCPCS: 01967; 01968; 36415; 59200; 64488; 76942; 85018; 85025; 86592; 86850; 86870; 86880; 86900; 86901; 86922; 88307; 99140; A4314; A9270; C1726; J0456; J0665; J0666; J0690; J1100; J1650; J1815; J1885; J2250; J2270; J2274; J2405; J2590; J2704; J2795; J3010; J3490; J7050; J7120

== ENCOUNTER 2025-09-08 16:23 | Inpatient (IN) | payer OTHER, SELFPAY ==
[2025-09-08] VITALS (68 sets, daily range): BP systolic 117–177; BP diastolic 56–82; PULSE 64–81; RESP 16–21; TEMP 36.6; O2SAT 93–99
[2025-09-08] MEDS: LABETALOL HCL 100 MG TABLET 300 MG PO ×2 (16:41→22:30)
[2025-09-08] MEDS: LACTATED RINGERS 1000 ML 1,000 ML 75 ML IV (17:02)
[2025-09-08] MEDS: HYDRALAZINE HCL 20 MG/ML inj IVP (17:04)
[2025-09-08] MEDS: MAGNESIUM IV 4 GM/100 ML PIGGYBACK IVPB (17:10)
[2025-09-08 17:26] LABS: Hematocrit* 29.4 % (33.0-51.0); Hemoglobin* 9.6 gm/dL (12.0-16.0); Mean Corpuscular HGB Conc 33 gm/dL (32-36); Mean Corpuscular Hemoglobin 27 pg (26-34); Mean Corpuscular Volume 84 fL (80-100); Red Blood Count* 3.50 m/uL (4.00-5.20); White Blood Count* 6.56 K/uL (4.50-11.00)
[2025-09-08 17:33] LABS: Slide Review Reflex No
[2025-09-08] MEDS: ACETAMINOPHEN 500 MG TABLET 1000 MG PO (17:36)
[2025-09-08 17:41] LABS: Alanine Aminotransferase* 18 U/L (4-35); Aspartate Amino Transferase* 26 U/L (12-35); Blood Urea Nitrogen* 9 mg/dL (5-24); Creatinine* 0.6 mg/dL (0.5-1.5); Estimated Glomerular Filt Rate 117 ml/min
[2025-09-08] MEDS: MAGNESIUM Infusion 40 GM/1,000 ML IV.SOLN IVPB (17:48)
--- NOTE | 2025-09-08 17:57 | PM.OBHPAP1 ---
OB - H&P; HPI Antepartum History of Present Illness Date Seen: 09/08/25 Chief complaint: Maternity - readmission Narrative: Eveline Jiang is a 40 year old female , 20 days from admitted for chronic hypertension with superimposed pre-eclampsia. Medical history complicated by chronic hypertension and type II diabetes on lantus. On 09/06/2025, patient presented to ED with abdominal pain. CT scan showed diverticulitis and fluid collection in the anterior pelvic musclature concerning for seroma vs abscess at c/s incision site. She was started on augmentin for diverticulitis. Abdominal pain has improved dramatically and today is the first day she has been able to tolerate solids. Her blood pressure has been high at home 150-170s systolic. She is taking labetalol 300mg BID which has gradually been increased . She has had a dull headache. No fevers. She is overall anxious to be here. Her was here but took son home for the evening. Blood pressure on admission were in severe range (170s). She was given 5mg hydralazine and BP have come down to 130-140s systolic, 70-80s diastolic. Meds Home Medications and Allergies Home Medications ?Medication ?Instructions ?Recorded ?Confirmed ?Type hydroxyzine pamoate 25 mg capsule 25 mg PO Q8H PRN 07/19/25 09/01/25 History vitamins with calcium 1 tab PO DAILY 07/19/25 09/01/25 History no.72-iron 27 mg-folic acid 1 mg tablet (WesTab Plus) sertraline 100 mg tablet 150 mg PO DAILY 07/19/25 09/01/25 History acetaminophen 500 mg tablet 1,000 mg (2 x 500 mg) PO Q6H PRN 08/21/25 09/01/25 Rx Pain 30 days #60 tabs docusate sodium 100 mg capsule 100 mg PO DAILY 30 days #30 caps 08/21/25 09/01/25 Rx ibuprofen 600 mg tablet 600 mg PO Q6H PRN Pain 30 days #60 08/21/25 09/01/25 Rx tabs insulin glargine 100 unit/mL (3 12 unit (0.12 mL) subcut DAILY #15 08/21/25 09/01/25 Rx mL) subcutaneous pen (Lantus mL Solostar U-100 Insulin) modified lanolin 100 % topical 1 applic topical Q1H PRN skin 08/21/25 09/01/25 Rx cream (Lanolin (HPA)) irritation #7 grams labetalol 100 mg tablet 200 mg PO BID 08/27/25 09/01/25 History labetalol 300 mg tablet 300 mg PO BID #60 tabs 09/01/25 09/01/25 Rx Allergies Allergy/AdvReac Type Severity Reaction Status Date / Time cefdinir Allergy Intermediate Rash Verified 08/27/25 10:00 metformin AdvReac Severe Gastrointestinal Verified 08/27/25 10:00 Upset tramadol AdvReac Dizziness Verified 08/27/25 10:00 OB - H&P: Exam Physical Exam: Vital signs: Temp Pulse Resp BP Pulse Ox 98 F 69 16 147/70 H 97 09/08/25 17:20 09/08/25 17:49 09/08/25 17:20 09/08/25 17:49 09/08/25 17:53 Narrative: Gen: alert, oriented, NAD Heart: Regular rate and rhythm, normal S1 and S2, no murmurs/rubs/gallops Lungs: clear to auscultation bilaterally without crackles or wheezes Abd: minimally tender, soft to palpation Skin: Incision site healing well. Fluid collection palpated on left mid incision site and right side. There is induration/pea d'orange on abdominal panus. NO erythema or warmth on exam. OB - Results Labs Labs: Short CBC 09/08/25 Range/Units 16:55 WBC 6.56 (4.50-11.00) K/uL Hgb 9.6 L (12.0-16.0) gm/dL Hct 29.4 L (33.0-51.0) % Plt Count 435 (140-440) K/uL BMP 09/08/25 16:55 BUN 9 Creatinine 0.6 Liver Function 09/08/25 Range/Units 16:55 AST 26 (12-35) U/L ALT 18 (4-35) U/L OB - A/P Antepartum Assessment and Plan (1) Chronic hypertension with superimposed preeclampsia: Problem details: Blood pressure high at home with dull headaches since 09/04. BP at home 150-170s systolic. PCP discussed case with OB on-call who recommended admission to admits for PreE with severe features and starting magnesium x24h. Labetalol escalated to 300mg TID, likely to need addition of nifedipine. PRN meds available for severe range pressures. Labs all normal, reassuring. Status: Acute Assessment and Plan: - Start magnesium x24, recommend monitor for at least 12 hours after magnesium stops. - Labs q6h - 2 IVs for magnesium and other non-compatible meds (ie hydralazine) - Continue labetalol 300mg TID. Consider adding nifedipine if BP remain elevated. - PRN meds available. (2) Acute diverticulitis of intestine: Problem details: Symptoms presented over the weekend, CT a/p with diverticulitis on 09/06 subsequently started on Augmentin with symptomatic improvement. Last dose of Augmentin in AM today. Status: Acute Assessment and Plan: Continue outpatient augmentin. Low fiber, diabetic diet. Recommend gradual advancement of diet. Return to clear liquid diet if abdominal pain worsens or increase in diarrhea. (3) Type 2 diabetes mellitus affecting , antepartum: Problem details: Blood sugars stable and low , notably not eating much due to diverticulitis. Endocrinology recommendations: Lantus 25 units daily, stop Humalog. Patient had decreased to 12u in AM at home. Maintain pre-prandial glucose between 80-130, 2h post-prandial between 80-180. Status: Acute Assessment and Plan: - Moderate intensity SSI ordered - No lantus ordered for AM, consider decreasing to 6 units or stopping until returns to normal diet to avoid hypoglycemia. (4) S/P primary low transverse : Problem details: Delivered via primary C/s at 38.0w GA after failed IOL due to failure to progress. Status: Acute (5) Seroma after procedure: Problem details: Abscess vs seroma s/p [address] with fluid collection measuring 2x8 cm. OB to see patient tomorrow to evaluate necessity for drainage or not. Status: Acute Assessment and Plan: - OB consult for AM to evaluate fluid collection. (6) Anxiety: Problem details: on sertraline 150mg qAM and hydroxyzine 50-100mg prn Status: Acute Assessment and Plan: - Continue home medications. (7) Lactating mother: Problem details: Pumping and bottling for son (Devyn) Status: Acute (8) Anemia: Problem details: Hemoglobin has dropped since discharge. Monitor at this time. Hold home iron supplement. Status: Acute
[2025-09-08 23:31] LABS: Hematocrit* 27.3 % (33.0-51.0); Hemoglobin* 8.9 gm/dL (12.0-16.0); Mean Corpuscular HGB Conc 33 gm/dL (32-36); Mean Corpuscular Hemoglobin 28 pg (26-34); Mean Corpuscular Volume 84 fL (80-100); Red Blood Count* 3.24 m/uL (4.00-5.20); White Blood Count* 5.78 K/uL (4.50-11.00)
[2025-09-08 23:34] LABS: Slide Review Reflex No
[2025-09-08 23:44] LABS: Alanine Aminotransferase* 15 U/L (4-35); Aspartate Amino Transferase* 23 U/L (12-35); Blood Urea Nitrogen* 9 mg/dL (5-24); Creatinine* 0.6 mg/dL (0.5-1.5); Estimated Glomerular Filt Rate 117 ml/min
[2025-09-09] VITALS (11 sets, daily range): BP systolic 105–131; BP diastolic 57–83; PULSE 63–76; RESP 15–20; TEMP 36.4–36.8; O2SAT 95–98
[2025-09-09] MEDS: ACETAMINOPHEN 500 MG TABLET 1000 MG PO ×3 (04:39→21:22)
[2025-09-09] MEDS: LACTATED RINGERS 1000 ML 1,000 ML 75 ML IV (05:14)
[2025-09-09 05:15] LABS: Hematocrit* 28.0 % (33.0-51.0); Hemoglobin* 9.2 gm/dL (12.0-16.0); Mean Corpuscular HGB Conc 33 gm/dL (32-36); Mean Corpuscular Hemoglobin 28 pg (26-34); Mean Corpuscular Volume 85 fL (80-100); Red Blood Count* 3.29 m/uL (4.00-5.20); White Blood Count* 5.44 K/uL (4.50-11.00)
[2025-09-09 05:21] LABS: Slide Review Reflex No
[2025-09-09 05:35] LABS: Alanine Aminotransferase* 16 U/L (4-35); Aspartate Amino Transferase* 19 U/L (12-35); Blood Urea Nitrogen* 7 mg/dL (5-24); Creatinine* 0.6 mg/dL (0.5-1.5); Estimated Glomerular Filt Rate 117 ml/min
--- NOTE | 2025-09-09 08:03 | PM.OBCN1 ---
OB - CN: HPI Date of Consult Time Seen by Provider: 07:30 Date Seen: 09/09/25 Consult date: 09/09/25 Requesting Physician: Darcy Randolph MD Primary Care Provider: Deanna Wright MD Consult Narrative Narrative: The patient is a 40 year old s/p primary delivery on 08/19/25 at 38 weeks gestation that was admitted to the [facility] on 09/08/25 for diverticulitis and superimposed preeclampsia with severe features. Her medical history is complicated by chronic hypertension and type 2 diabetes on Lantus. She presented to the emergency room on 09/06/2025 with a few days of generalized abdominal pain that was worsening. CT scan on 09/06/25: 1. Findings concerning for an uncomplicated acute diverticulitis of the proximal sigmoid colon. 2. Collection in the anterior pelvic musculature to the left of midline measuring 2.9 x 8.2 cm, possibly postoperative seroma versus developing abscess. Recommend clinical correlation. Additionally, skin thickening and subcutaneous edema along the lower anterior abdominal pelvic soft tissue is nonspecific, and correlation with exam is recommended to exclude cellulitis. 3. Scattered nodular ground-glass opacities in the lower lungs may be infectious or inflammatory. Short-term interval follow-up is recommended in 1-2 months to ensure resolution. Patient's abdominal pain has significantly improved since starting antibiotic. Denies any incisional complaints. Patient denies fever, chills, chest pain, SOB, n/v, or dizziness. Denies vaginal bleeding or abnormal vaginal discharge. History History 2 Elective abortions Para 1 Spontaneous abortions Hx # Term Pregnancies Ectopic pregnancies Hx # Pregnancies Multiple births Number of Living Children 0 PFSH PFSH Medical History (Updated 09/09/25 @ 09:47 by Wilda Goldsmith MD) Asthma ?J45.909 - Unspecified asthma, uncomplicated (ICD-10) Anxiety ?F41.9 - Anxiety disorder, unspecified (ICD-10) Chronic hypertension affecting ?O10.919 - Unspecified pre-existing hypertension complicating , unspecified trimester (ICD-10) Type 2 diabetes mellitus affecting , antepartum ?O24.119 - Pre-existing type 2 diabetes mellitus, in , unspecified trimester (ICD-10) Surgical History (Updated 09/08/25 @ 18:13 by Darcy Randolph MD) S/P tonsillectomy and adenoidectomy ?Z90.89 - Acquired absence of other organs (ICD-10) History of esophagogastroduodenoscopy (EGD) ?Z98.890 - Other specified postprocedural states (ICD-10) Social History What is your current living situation?: I presently have a place to live Problems where you live: no known problems In the past 12 months, utilities in danger of being shut off: no In past 12 months, lack of transportation kept you from medical appts, meetings, work, or getting things needed for daily living: no In the past 12 mos, have been you worried that your food would run out before you had money to buy more?: never true In the past 12 mos, the food you bought just didn't last and you didn't have money to buy more?: never true Smoking Status: Never smoker How often does anyone, including family, friends and others, physically hurt you: never How often does anyone, including family, friends and others, insult or talk down to you: never How often does anyone, including family, friends and others, threaten you with harm: never How often does anyone, including family, friends and others, scream or curse at you: never Meds Home Medications and Allergies Home Medications ?Medication ?Instructions ?Recorded ?Confirmed ?Type hydroxyzine pamoate 25 mg capsule 25 mg PO Q8H PRN 07/19/25 09/01/25 History vitamins with calcium 1 tab PO DAILY 07/19/25 09/01/25 History no.72-iron 27 mg-folic acid 1 mg tablet (WesTab Plus) sertraline 100 mg tablet 150 mg PO DAILY 07/19/25 09/01/25 History acetaminophen 500 mg tablet 1,000 mg (2 x 500 mg) PO Q6H PRN 08/21/25 09/01/25 Rx Pain 30 days #60 tabs docusate sodium 100 mg capsule 100 mg PO DAILY 30 days #30 caps 08/21/25 09/01/25 Rx ibuprofen 600 mg tablet 600 mg PO Q6H PRN Pain 30 days #60 08/21/25 09/01/25 Rx tabs insulin glargine 100 unit/mL (3 12 unit (0.12 mL) subcut DAILY #15 08/21/25 09/01/25 Rx mL) subcutaneous pen (Lantus mL Solostar U-100 Insulin) modified lanolin 100 % topical 1 applic topical Q1H PRN skin 08/21/25 09/01/25 Rx cream (Lanolin (HPA)) irritation #7 grams labetalol 100 mg tablet 200 mg PO BID 08/27/25 09/01/25 History labetalol 300 mg tablet 300 mg PO BID #60 tabs 09/01/25 09/01/25 Rx Allergies Allergy/AdvReac Type Severity Reaction Status Date / Time cefdinir Allergy Intermediate Rash Verified 08/27/25 10:00 metformin AdvReac Severe Gastrointestinal Verified 08/27/25 10:00 Upset tramadol AdvReac Dizziness Verified 08/27/25 10:00 OB - H&P: Exam Physical Exam: Vital signs: Temp Pulse Resp BP Pulse Ox O2 Del Method 97.6 F 69 17 131/83 98 Room Air 09/09/25 08:00 09/09/25 08:00 09/09/25 08:00 09/09/25 08:00 09/09/25 08:00 09/09/25 08:00 Narrative: Physical exam: General: No acute distress Psych: Alert and oriented x3, full affect HEENT: Normocephalic, atraumatic Lungs: Unlabored breathing Neuro: No focal deficit. Mentating appropriately Abdomen: incision clean, dry and intact without tenderness even on deep palpation. No erythema, induration, or drainage. 3 x 6 cm soft, nontender, well-circumscribed swelling to left of midline of Pfannenstiel incision. No overlying skin changes. Mildly fluctuant without tenderness. An additional 2 x 2 cm knot on right edge of incision, non fluctuant, non tender Pelvic exam: Deferred OB - Results Labs Labs: Short CBC 09/08/25 09/08/25 09/09/25 Range/Units 16:55 23:20 05:10 WBC 6.56 5.78 5.44 (4.50-11.00) K/uL Hgb 9.6 L 8.9 L 9.2 L (12.0-16.0) gm/dL Hct 29.4 L 27.3 L 28.0 L (33.0-51.0) % Plt Count 435 379 369 (140-440) K/uL BMP 09/08/25 09/08/25 09/09/25 16:55 23:20 05:10 BUN 9 9 7 Creatinine 0.6 0.6 0.6 Liver Function 09/08/25 09/08/25 09/09/25 Range/Units 16:55 23:20 05:10 AST 26 23 19 (12-35) U/L ALT 18 15 16 (4-35) U/L OB - CN: A/P Assessment and Plan (1) Chronic hypertension with superimposed preeclampsia: Problem details: Blood pressure high at home with dull headaches since 09/04. BP at home 150-170s systolic. PCP discussed case with OB on-call who recommended admission to admits for PreE with severe features and starting magnesium x24h. Labetalol escalated to 300mg TID, with normalization of BP. PRN meds available for severe range pressures. Labs all normal, reassuring. Likely d/c tomorrow if continues to do well off magnesium. Status: Acute (2) Acute diverticulitis of intestine: Problem details: Symptoms presented over the weekend, CT a/p with diverticulitis on 09/06 subsequently started on Augmentin with symptomatic improvement. Continue antibiotics while hospitalized Status: Acute (3) Type 2 diabetes mellitus affecting , antepartum: Problem details: Blood sugars stable and low , notably not eating much due to diverticulitis. Endocrinology recommendations: Lantus 25 units daily, stop Humalog. Patient had decreased to 12u in AM at home. Maintain pre-prandial glucose between 80-130, 2h post-prandial between 80-180. Status: Acute (4) S/P primary low transverse : Problem details: Delivered via primary C/s at 38.0w GA after failed IOL due to failure to progress. Status: Acute (5) Seroma after procedure: Problem details: Abscess vs seroma s/p [address] with fluid collection measuring 2x8 cm. OB consulted Status: Acute Assessment and Plan: - seroma noted. Asymptomatic. No signs of infection or breakdown of incision site. Patient is already on Augmentin for diverticulitis - conservative treatment for now - will repeat physical exam upon discharge to make sure there is no signs of progression or complications. (6) Anxiety: Problem details: on sertraline 150mg qAM and hydroxyzine 50-100mg prn Status: Acute (7) Lactating mother: Problem details: Pumping and bottling for son (Devyn) Status: Acute (8) Anemia: Problem details: Hemoglobin has dropped since discharge. Monitor at this time. Hold home iron supplement. Status: Acute
[2025-09-09] MEDS: SERTRALINE 100 MG TABLET 150 MG PO (08:53)
[2025-09-09] MEDS: ONDANSETRON ODT 4 MG TAB PO (08:53)
[2025-09-09] MEDS: LABETALOL HCL 100 MG TABLET 300 MG PO ×3 (08:53→21:21)
--- NOTE | 2025-09-09 09:38 | PM.OBPNVD1 ---
OB - PN:Subj Subjective Date Seen: 09/09/25 Interval history: Eveline is 40 year old 21 days from a LTCS. She was admitted yesterday with mild headache and severe range BP. Labetalol dosing increased to 300 mg TID and she required 1 dose IV hydralazine. She is on magnesium which is making her feel poorly, but she did have a great night of sleep and is feeling overall better this morning. Of note, she has DM2, blood sugars well controlled, bordering on low due to poor oral intake while recovering from diveritculitis. She is on Augmentin 875 BID and reports abdominal pain is better, no fevers, normal BMs and feels she is recovering from this as well. OB - PN: Obj Exam Physical Exam: Vital signs: Temp Pulse Resp BP Pulse Ox O2 Del Method 97.6 F 69 17 131/83 98 Room Air 09/09/25 08:00 09/09/25 08:00 09/09/25 08:00 09/09/25 08:00 09/09/25 08:00 09/09/25 08:00 Constitutional: Constitutional: no acute distress Routine HEENT Exam: Eye: Present EOMI and normal appearance ENT: Present mucous membranes moist Routine Neck Exam: Neck: Present full ROM Routine Respiratory Exam: Respiratory: Present CTA bilaterally Routine Cardiovascular Exam: Cardiovascular: Present RRR Routine Abdominal Exam: Comments: Obese, soft, non tender. scar appears well healed without signs of infection. Possible start of extrusion of suture on the right edge of the scar. OB - PN: Obj Data Labs Labs: Laboratory Results - last 24 hr 09/08/25 09/08/25 09/09/25 16:55 23:20 05:10 WBC 6.56 5.78 5.44 RBC 3.50 L 3.24 L 3.29 L Hgb 9.6 L 8.9 L 9.2 L Hct 29.4 L 27.3 L 28.0 L MCV 84 84 85 MCH 27 28 28 MCHC 33 33 33 Plt Count 435 379 369 BUN 9 9 7 Creatinine 0.6 0.6 0.6 Estimated GFR 117 117 117 Magnesium 4.7 H* 5.5 H* AST 26 23 19 ALT 18 15 16 OB - PN: A/P Delivery Assessment and Plan (1) Chronic hypertension with superimposed preeclampsia: Problem details: Blood pressure high at home with dull headaches since 09/04. BP at home 150-170s systolic. PCP discussed case with OB on-call who recommended admission to admits for PreE with severe features and starting magnesium x24h. Labetalol escalated to 300mg TID, with normalization of BP. PRN meds available for severe range pressures. Labs all normal, reassuring. Likely d/c tomorrow if continues to do well off magnesium. Status: Acute (2) Acute diverticulitis of intestine: Problem details: Symptoms presented over the weekend, CT a/p with diverticulitis on 09/06 subsequently started on Augmentin with symptomatic improvement. Continue antibiotics while hospitalized Status: Acute (3) Type 2 diabetes mellitus affecting , antepartum: Problem details: Blood sugars stable and low , notably not eating much due to diverticulitis. Endocrinology recommendations: Lantus 25 units daily, stop Humalog. Patient had decreased to 12u in AM at home. Maintain pre-prandial glucose between 80-130, 2h post-prandial between 80-180. Status: Acute (4) S/P primary low transverse : Problem details: Delivered via primary C/s at 38.0w GA after failed IOL due to failure to progress. Status: Acute (5) Seroma after procedure: Problem details: Abscess vs seroma s/p [address] with fluid collection measuring 2x8 cm. OB consulted Status: Acute (6) Anxiety: Problem details: on sertraline 150mg qAM and hydroxyzine 50-100mg prn Status: Acute (7) Lactating mother: Problem details: Pumping and bottling for son (Devyn) Status: Acute (8) Anemia: Problem details: Hemoglobin has dropped since discharge. Monitor at this time. Hold home iron supplement. Status: Acute
[2025-09-09 10:59] LABS: Hematocrit* 29.1 % (33.0-51.0); Hemoglobin* 9.6 gm/dL (12.0-16.0); Mean Corpuscular HGB Conc 33 gm/dL (32-36); Mean Corpuscular Hemoglobin 28 pg (26-34); Mean Corpuscular Volume 85 fL (80-100); Red Blood Count* 3.42 m/uL (4.00-5.20); Slide Review Reflex No; White Blood Count* 5.56 K/uL (4.50-11.00)
[2025-09-09 11:14] LABS: Blood Urea Nitrogen* 7 mg/dL (5-24); Creatinine* 0.6 mg/dL (0.5-1.5); Estimated Glomerular Filt Rate 117 ml/min
[2025-09-09 11:15] LABS: Alanine Aminotransferase* 15 U/L (4-35); Aspartate Amino Transferase* 20 U/L (12-35)
[2025-09-09] MEDS: MAGNESIUM Infusion 40 GM/1,000 ML IV.SOLN IVPB (11:54)
[2025-09-09 16:59] LABS: Hematocrit* 27.6 % (33.0-51.0); Hemoglobin* 9.0 gm/dL (12.0-16.0); Mean Corpuscular HGB Conc 33 gm/dL (32-36); Mean Corpuscular Hemoglobin 28 pg (26-34); Mean Corpuscular Volume 85 fL (80-100); Red Blood Count* 3.26 m/uL (4.00-5.20); White Blood Count* 5.59 K/uL (4.50-11.00)
[2025-09-09 17:02] LABS: Slide Review Reflex No
[2025-09-09 17:18] LABS: Alanine Aminotransferase* 16 U/L (4-35); Aspartate Amino Transferase* 27 U/L (12-35); Blood Urea Nitrogen* 11 mg/dL (5-24); Creatinine* 0.7 mg/dL (0.5-1.5); Estimated Glomerular Filt Rate 113 ml/min
[2025-09-10 00:08] VITALS: BP 110/71; PULSE 63; RESP 14; TEMP 37
[2025-09-10 04:13] VITALS: BP 121/78; PULSE 71; RESP 16; TEMP 36.9; O2SAT 96
[2025-09-10 05:49] LABS: Hematocrit* 28.7 % (33.0-51.0); Hemoglobin* 9.2 gm/dL (12.0-16.0); Mean Corpuscular HGB Conc 32 gm/dL (32-36); Mean Corpuscular Hemoglobin 27 pg (26-34); Mean Corpuscular Volume 85 fL (80-100); Red Blood Count* 3.37 m/uL (4.00-5.20); White Blood Count* 5.56 K/uL (4.50-11.00)
[2025-09-10 05:59] LABS: Slide Review Reflex No
[2025-09-10 06:04] LABS: Blood Urea Nitrogen* 10 mg/dL (5-24); Creatinine* 0.7 mg/dL (0.5-1.5); Estimated Glomerular Filt Rate 113 ml/min
[2025-09-10 06:05] LABS: Alanine Aminotransferase* 13 U/L (4-35); Aspartate Amino Transferase* 17 U/L (12-35)
[2025-09-10 08:11] VITALS: BP 131/84; PULSE 61; RESP 16; TEMP 36.7; O2SAT 96
--- NOTE | 2025-09-10 08:46 | PM.OBPNVD1 ---
OB - PN:Subj Subjective Date Seen: 09/10/25 Interval history: The patient is a 40 year old s/p primary delivery on 08/19/25 at 38 weeks gestation that was admitted to the [facility] on 09/08/25 for diverticulitis and superimposed preeclampsia with severe features. Her medical history is complicated by chronic hypertension and type 2 diabetes on Lantus. She is an [facility] patient, and the [employer] service was consulted for recommendations on management of possible seroma vs abscess of incision. She presented to the emergency room on 09/06/2025 with a few days of generalized abdominal pain that was worsening. CT scan on 09/06/25: 1. Findings concerning for an uncomplicated acute diverticulitis of the proximal sigmoid colon. 2. Collection in the anterior pelvic musculature to the left of midline measuring 2.9 x 8.2 cm, possibly postoperative seroma versus developing abscess. Recommend clinical correlation. Additionally, skin thickening and subcutaneous edema along the lower anterior abdominal pelvic soft tissue is nonspecific, and correlation with exam is recommended to exclude cellulitis. 3. Scattered nodular ground-glass opacities in the lower lungs may be infectious or inflammatory. Short-term interval follow-up is recommended in 1-2 months to ensure resolution. She is now on hospital day#3 after readmission. With regards to preeclampsia: She has been appropriately treated with magnesium sulfate infusion X 24 hours. She has also had labetalol dose adjusted. Blood pressures have been in high-normal during the last 24 hours. HELLP labs were entirely normal at last check. With regards to diverticulitis: She has been treated with Augmentin. Her abdominal pain has improved. She has remained afebrile and has a normal WBC today. DM2 is managed by [facility] physicians. Today, she reports feeling well. She denies any incisional pain. She has taken great care to keep her incision clean and dry at home. OB - PN: Obj Exam Physical Exam: Vital signs: Temp Pulse Resp BP Pulse Ox O2 Del Method 98.1 F 61 16 131/84 96 Room Air 09/10/25 08:11 09/10/25 08:11 09/10/25 08:11 09/10/25 08:11 09/10/25 08:11 09/10/25 08:11 Narrative: General: Pleasant, no acute distress Abdomen: Pannus is edematous and folds over lower uterine segment. Abdomen is soft and nontender. incision is clean, dry, intact, well healed, and I am unable to appreciate any palpable fluid collections beneath the incision on exam, only the underlying scar. No erythema or induration. OB - PN: Obj Data Labs Labs: Laboratory Results - last 24 hr 09/09/25 09/09/25 09/10/25 10:54 16:55 05:25 WBC 5.56 5.59 5.56 RBC 3.42 L 3.26 L 3.37 L Hgb 9.6 L 9.0 L 9.2 L Hct 29.1 L 27.6 L 28.7 L MCV 85 85 85 MCH 28 28 27 MCHC 33 33 32 Plt Count 408 333 404 BUN 7 11 10 Creatinine 0.6 0.7 0.7 Estimated GFR 117 113 113 Magnesium 6.0 H* 6.3 H* AST 20 27 17 ALT 15 16 13 OB - PN: A/P Delivery Assessment and Plan (1) Chronic hypertension with superimposed preeclampsia: Status: Acute Assessment and Plan: agree with management of [facility] (2) Acute diverticulitis of intestine: Problem details: Symptoms presented over the weekend, CT a/p with diverticulitis on 09/06 subsequently started on Augmentin with symptomatic improvement. Continue antibiotics while hospitalized Status: Acute Assessment and Plan: Recommend colonoscopy in around 6 months after healing. (3) S/P primary low transverse : Problem details: Delivered via primary C/s at 38.0w GA after failed IOL due to failure to progress. Status: Acute (4) Seroma after procedure: Problem details: Abscess vs seroma s/p [address] with fluid collection measuring 2 x 8 cm. Status: Acute Assessment and Plan: At this moment, there is no suggestion of superficial would disruption. She has no pain. In addition, no suggestion of abscess. Afebrile with normal white count. I recommended regular use of abdominal binder if possible for 2 weeks. Augmentin is an acceptable antibiotic for coverage of wound infection, though this may simply be seroma. I recommend another consult of [employer] should any concerns with incision be noted in the next few weeks to come; I would likely recommend repeat imaging at that time. (5) Lactating mother: Problem details: Pumping and bottling for son (Devyn) Status: Acute Plan Plan: discharge home
[2025-09-10] MEDS: LABETALOL HCL 100 MG TABLET 300 MG PO (09:12)
[2025-09-10] MEDS: SERTRALINE 100 MG TABLET 150 MG PO (09:24)
--- NOTE | 2025-09-11 08:00 | W.PM.OB.MED ---
DS: Providers Provider Time Seen by Provider: 07:30 Date Seen: 09/10/25 Date of admission: 09/08/25 16:23 Primary care physician: Deanna Wright MD Admitting Clinician: Darcy Randolph MD Consults: 09/09/25 07:00 Consult to Physician [CONS] Routine Comment: Consulting Provider: Deja Bagley Has provider been notified: Yes Attending Physician on discharge: Aruna Rudolph MD Date of Discharge: 09/10/25 DS: Diagnosis Discharge Diagnosis (1) Chronic hypertension with superimposed preeclampsia: Status: Acute Problem details: Admitted with severe range pressures at 3 weeks PP. Pre-eclampsia labs WNL. Completed 24 hours of IV magnesium. Required IV treatment x1. Pre-admission labetalol was ramped to 300 mg TID. At time of discharge, blood pressures were well within normal range for >24 hours. (2) Acute diverticulitis of intestine: Status: Acute Problem details: Symptoms presented over the weekend, CT a/p with diverticulitis on 09/06 subsequently started on Augmentin with symptomatic improvement. Continued to improve during hospital stay. Discharged with instructions to complete course of augmentin. (3) S/P primary low transverse : Status: Acute Problem details: Delivered via primary C/s at 38.0w GA after failed IOL due to failure to progress. (4) Seroma after procedure: Status: Acute Problem details: S/p 08/19/25. CT with fluid collection measuring 2 x 8 cm, favor seroma. Incision remained appropriate during her hospital stay. OB consulted. At discharged, recommended ongoing monitoring with repeat imaging if concerns. (5) Lactating mother: Status: Acute Problem details: Pumping and bottling for son (Devyn) Discharge Plan Discharge Disposition: Home, Self-Care Date of Admission: 09/08/25 16:23 Attending Provider on Discharge: Aruna Rudolph Consulting Providers: Deja Bagley Primary Care Provider: Deanna Wright Condition: Improved Anticipated Discharge Date/Time: 09/10/25 10:36 Discharge Medications: New labetalol 100 mg Tablet 300 mg PO TID 30 Days Qty: 270 0RF amoxicillin-pot clavulanate 875-125 mg Tablet 875 tab PO BIDWM Qty: 12 0RF Continued hydroxyzine pamoate 25 mg capsule 25 mg PO Q8H PRN sertraline 100 mg tablet 150 mg PO DAILY WesTab Plus 27 mg iron- 1 mg tablet 1 tab PO DAILY insulin glargine [Lantus Solostar U-100 Insulin] 100 unit/mL (3 mL) insulin pen 12 unit subcut DAILY Qty: 15 0RF acetaminophen 500 mg tablet 1,000 mg PO Q6H PRN (Reason: Pain) 30 Days Qty: 60 0RF docusate sodium 100 mg capsule 100 mg PO DAILY 30 Days Qty: 30 0RF ibuprofen 600 mg tablet 600 mg PO Q6H PRN (Reason: Pain) 30 Days Qty: 60 0RF Lanolin (HPA) 100 % cream 1 applic topical Q1H PRN (Reason: skin irritation) Qty: 7 0RF Discontinued labetalol 300 mg tablet 300 mg PO BID Qty: 60 0RF labetalol 100 mg tablet 200 mg PO BID Discharge Orders: Discharge Order (Routine); Ordered 09/10/25 Ordered By: Aruna Rudolph Patient Education: Preeclampsia and Eclampsia After Delivery (GEN) Additional Instructions: Dr. Wright's nurse will contact you with a follow up appointment please call [phone] if you do not hear Activity Level: Activity as Tolerated Discharge Diet: Diabetic Follow Up Appointments: Deanna Wright MD [Primary Care Provider, Family Practice] Forms[facility] Discharge Comments: Follow-up with Dr. Deanna Wright at the [facility] on SaturdaySep 14 at 9:10 AM for BP check. Hospital Course Labs Labs: Laboratory Tests 09/10/25 09/09/25 09/09/25 Range/Units 05:25 16:55 10:54 WBC 5.56 5.59 5.56 (4.50-11.00) K/uL RBC 3.37 L 3.26 L 3.42 L (4.00-5.20) m/uL Hgb 9.2 L 9.0 L 9.6 L (12.0-16.0) gm/dL Hct 28.7 L 27.6 L 29.1 L (33.0-51.0) % MCV 85 85 85 (80-100) fL MCH 27 28 28 (26-34) pg MCHC 32 33 33 (32-36) gm/dL Plt Count 404 333 408 (140-440) K/uL BUN 10 11 7 (5-24) mg/dL Creatinine 0.7 0.7 0.6 (0.5-1.5) mg/dL Estimated GFR 113 113 117 ml/min Magnesium 6.3 H* 6.0 H* (1.5-2.6) mg/dL AST 17 27 20 (12-35) U/L ALT 13 16 15 (4-35) U/L 09/09/25 09/08/25 09/08/25 Range/Units 05:10 23:20 16:55 WBC 5.44 5.78 6.56 (4.50-11.00) K/uL RBC 3.29 L 3.24 L 3.50 L (4.00-5.20) m/uL Hgb 9.2 L 8.9 L 9.6 L (12.0-16.0) gm/dL Hct 28.0 L 27.3 L 29.4 L (33.0-51.0) % MCV 85 84 84 (80-100) fL MCH 28 28 27 (26-34) pg MCHC 33 33 33 (32-36) gm/dL Plt Count 369 379 435 (140-440) K/uL BUN 7 9 9 (5-24) mg/dL Creatinine 0.6 0.6 0.6 (0.5-1.5) mg/dL Estimated GFR 117 117 117 ml/min Magnesium 5.5 H* 4.7 H* (1.5-2.6) mg/dL AST 19 23 26 (12-35) U/L ALT 16 15 18 (4-35) U/L OB Problem List Additional Plan (1) Chronic hypertension with superimposed preeclampsia: Problem details: Admitted with severe range pressures at 3 weeks PP. Pre-eclampsia labs WNL. Completed 24 hours of IV magnesium. Required IV treatment x1. Pre-admission labetalol was ramped to 300 mg TID. At time of discharge, blood pressures were well within normal range for >24 hours. Status: Acute (2) Acute diverticulitis of intestine: Problem details: Symptoms presented over the weekend, CT a/p with diverticulitis on 09/06 subsequently started on Augmentin with symptomatic improvement. Continued to improve during hospital stay. Discharged with instructions to complete course of augmentin. Status: Acute (3) S/P primary low transverse : Problem details: Delivered via primary C/s at 38.0w GA after failed IOL due to failure to progress. Status: Acute (4) Seroma after procedure: Problem details: S/p 08/19/25. CT with fluid collection measuring 2 x 8 cm, favor seroma. Incision remained appropriate during her hospital stay. OB consulted. At discharged, recommended ongoing monitoring with repeat imaging if concerns. Status: Acute (5) Lactating mother: Problem details: Pumping and bottling for son (Devyn) Status: Acute DS: Summary Vital Signs Vital Signs: Vital Signs Temp Pulse Resp BP Pulse Ox O2 Del Method 09/10/25 08:11 98.1 F 61 16 131/84 96 Room Air Discharge Examination Physical Examination findings: General appearance: Well-appearing adult female. Alert, oriented and appropriate. Sitting up in hospital bed. HEENT: EOMI, no conjunctival injection or discharge. MMM. Neck: Supple. CV: RRR, no rubs, murmurs or extra heart sounds. Pulm: CTAB, no wheezes, rales or rhonchi. Abdomen: Obese. Low transverse surgical incision appears clean, dry and intact. Fluid collection appreciated at the left lateral margin of the incision. Non-tender. Abdomen otherwise soft and non-tender. Pannus edematous. MSK: Moving all extremities. Ext: Warm and well-perfused. No LE edema. Skin: No rashes appreciated over exposed skin. Neuro: Grossly normal strength and sensation. No focal deficits. Psych: Normal affect.
== END 2025-09-10 09:55 | disposition home or self-care (01) | DRG 776 ==
PROVIDERS: Family Medicine; Admitting Provider Student in an Organized Health Care Education/Training Program; PCP Family Medicine; Visit Provider Student in an Organized Health Care Education/Training Program
DX: O14.15 Severe pre-eclampsia, complicating the puerperium (principal); K57.32 Diverticulitis of large intestine without perforation or abscess without bleeding; O10.93 Unspecified pre-existing hypertension complicating the puerperium; O24.13 Pre-existing type 2 diabetes mellitus, in the puerperium; Z79.4 Long term (current) use of insulin; O99.345 Other mental disorders complicating the puerperium; F41.9 Anxiety disorder, unspecified; O90.2 Hematoma of obstetric wound; O90.81 Anemia of the puerperium; D64.9 Anemia, unspecified
CPT/HCPCS: 36415; 82565; 82962; 83735; 84450; 84460; 84520; 85027; A9270; J0360; J1815; J3475; J7120